=== PATIENT | male | born 1990 | race Caucasian/White ===

== ENCOUNTER 2018-01-04 09:29 | Day surgery (SDC) | payer BC ==
[~2018-01-04 09:29] MED LIST: ANCEF VIAL 1 GM ONE; MARCAINE 0.25% INJ ONE; NS 100 ML IV 100 ML IV ONE; NS 1000 ML 1,000 ML ONE; XYLOCAINE 1% and EPINEPHRINE 1:100,000 ONE
[2018-01-04 10:29] LABS: BASOPHILS # (AUTO) 0.1 X10^3/uL (0.0-0.1); BASOPHILS % (AUTO) 0.9 % (0.2-1.0); EOSINOPHILS # (AUTO) 0.2 x10^3/uL (0.0-0.2); EOSINOPHILS % (AUTO) 2.2 % (0.9-2.9); HEMATOCRIT 44.7 % (42.0-54.0); HEMOGLOBIN 15.4 g/dL (13.5-18.0); LYMPHOCYTES # (AUTO) 3.6 X10^3/uL (1.3-2.9); LYMPHOCYTES % (AUTO) 32.7 % (21.0-51.0); MEAN CORPUSCULAR HEMOGLOBIN 28.9 pg (27.0-34.0); MEAN CORPUSCULAR HGB CONC 34.4 g/dL (33.0-35.0); MEAN CORPUSCULAR VOLUME 83.9 fL (80.0-100.0); MEAN PLATELET VOLUME 9.9 fL (7.4-11.0); MONOCYTES # (AUTO) 0.6 x10^3/uL (0.3-0.8); MONOCYTES % (AUTO) 5.6 % (0.0-13.0); NEUTROPHILS # (AUTO) 6.5 x10^3/uL (2.2-4.8); NEUTROPHILS % (AUTO) 58.6 % (42.0-75.0); PLATELET COUNT 269 X10^3/uL (150.0-450.0); RED BLOOD COUNT 5.32 X10^6/uL (4.7-6.0); RED CELL DISTRIBUTION WIDTH 13.5 % (11.6-16.5); WHITE BLOOD COUNT 11.1 X10^3/uL (3.6-10.0)
[2018-01-04 10:37] LABS: ALANINE AMINOTRANSFERASE 36 Units/L (12-78); ALBUMIN 4.4 g/dL (3.4-5.0); ALKALINE PHOSPHATASE 113 Units/L (46-116); ASPARTATE AMINO TRANSFERASE 19 Units/L (15-37); BLOOD UREA NITROGEN 8 mg/dL (7-18); CALCIUM 8.7 mg/dL (8.5-10.1); CARBON DIOXIDE 28.7 mmol/L (21-32); CHLORIDE 103 mmol/L (98-107); CREATININE 1.04 mg/dL (0.70-1.30); SODIUM 140 mmol/L (136-145); eGFR BLACK RACES > 60 (>60); eGFR NON BLACK RACES > 60 (>60)
[2018-01-04] MEDS ORDERED: FENTANYL INJ 250 mcg ONE (11:07)
[2018-01-04] MEDS ORDERED: DILAUDID INJ ONE ×2 (11:55→13:14)
[2018-01-04] MEDS ORDERED: NS IRRIGATION 1000 ML 1,000 ML IR ONE ×2 (12:01→12:20)
[2018-01-04] MEDS ORDERED: PERCOCET TAB 5/325 MG PO PRN (12:54)
--- NOTE | 2018-01-04 12:56 | OR.GENERIC ---
Post-Op Note Generic - Post-Op Note Operative Report: Operative Report Date of Operation: January 04, 2018 Pre-Operative Diagnosis: Symptomatic cholelithiasis. Post-Operative Diagnosis: Symptomatic cholelithiasis Procedure: Laparoscopic cholecystectomy. Surgeon: Marcus Ramirez MD. Correction Officer: Barbara Rae CRNA. Specimen: Gallbladder. Estimated blood loss: Minimal. Complications: None. Summary: The patient is a 27 year old male who presented with symptomatic cholelithiasis. The patient was offered cholecystectomy. The risk and benefits of the procedure including difficulty with anesthesia, bleeding, infection, conversion to open procedure, bile leak, hernia formation, DVT, as well as PE were discussed with the patient. The patient understood these risks and requested the procedure. On January 04, 2018, the patient was brought to the operative theatre. A time out was performed verifying the patient and procedure. The patient received Ancef for pre-operative antibiosis. After satisfactory induction of general endotracheal anesthesia, the abdomen was prepped with Chloraprep and draped in the usual sterile fashion. The skin and subcutaneous tissue inferior to the umbilicus was anesthetized using local anesthetic. The skin was incised sharply. A 12 mm trocar was placed though the incision and into the peritoneal cavity using the Optiview technique. Carbon dioxide was infiltrated through this trocar to obtain a pneumoperitoneum of 15 mm Hg. A camera was placed through this trocar and swept in all directions. No injury was seen from entering the peritoneal cavity. A site was selected in the subxiphoid location for our 2nd trocar. The skin and fascia was anesthetized using local anesthetic. The skin was incised sharply. A 5 mm trocar was placed into the peritoneal cavity under direct visualization. In a similar manner, two additional 5 mm trocars were placed. The first was placed in the mid- clavicular line approximately 2 fingerbreadths inferior to the left costal margin and a second in the anterior axillary line approximately 2 fingerbreadths inferior to the left costal margin. The patient was placed in reverse Trendelenburg and rotated to the patients left. The gallbladder was grasped at the fundus and elevated cephalad and slightly lateral. The peritoneum on the medial and lateral aspects of the infundibulum of the gallbladder was scored using hook electrocautery. Using blunt dissection, the cystic artery and duct were isolated. The critical view of safety was obtained. Both of these structures were divided between endoclips. The gallbladder was dissected free using hook electrocautery. The gallbladder was placed in an endobag and removed through the umbilical trocar site without difficulty. The trocar and camera were placed back inside the abdomen. Our clips were noted in good position. A small branch of the cystic artery was seen with active bleeding. This was controlled with an endoclip. No further bleeding was seen. Bleeding of the gallbladder fossa was controlled using electrocautery. At this point, the 5 mm trocars were removed under direct visualization. No bleeding was seen. The umbilical trocar was then removed and pneumoperitoneum released. The fascia at the umbilicus was closed using a 0 -Vicryl placed in a [id number] configuration. The skin edges at all incisions were re-approximated using inverted, interrupted 4-0 Monocryl sutures. Mastisol and Steri-strips were placed. Sterile dressings were placed. The patient was awakened and taken to the recovery room in stable condition. There were no complications. All counts were correct.
[2018-01-04] MEDS ORDERED: BENADRYL INJ 50 MG VIAL IVP PRN (13:08)
[2018-01-04] MEDS ORDERED: PHENERGAN INJ 25 MG IVP PRN (13:08)
[2018-01-04] MEDS ORDERED: REGLAN INJ 10 MG VIAL IVP PRN (13:08)
[2018-01-04] MEDS ORDERED: ZOFRAN INJ 4 MG VIAL IVP PRN (13:08)
[2018-01-04] MEDS ORDERED: PHENERGAN INJ 25 MG ONE (13:15)
[2018-01-04] MEDS: DILAUDID INJ IVP PRN ×4 (13:15→13:33)
[2018-01-04 14:50] VITALS: BP 114/66
[2018-01-04] MEDS ORDERED: XYLOCAINE 2 % (PLAIN) ONE (15:01)
[2018-01-04] MEDS ORDERED: ZOFRAN INJ 4 MG VIAL ONE (15:01)
[2018-01-04] MEDS ORDERED: NORCURON INJ 10 MG VIAL ONE (15:01)
[2018-01-04] MEDS ORDERED: TORADOL 30 MG VIAL ONE (15:01)
[2018-01-04] MEDS ORDERED: QUELICIN (OR ANECTINE) ONE (15:01)
[2018-01-04] MEDS ORDERED: LTA KIT LIDOCAINE 4% ONE (15:01)
[2018-01-04] MEDS ORDERED: SUPRANE IN ONE (15:01)
[2018-01-04] MEDS ORDERED: ROBINUL ONE (15:01)
[2018-01-04] MEDS ORDERED: NEOSTIGMINE INJ ONE (15:01)
[2018-01-04] MEDS ORDERED: DIPRIVAN VIAL ONE (15:01)
[2018-01-04] MEDS ORDERED: VERSED ONE (15:01)
== END 2018-01-04 14:48 | disposition home or self-care (01) ==
LOC: SURG1 09:29
PROVIDERS: ATTEND Student in an Organized Health Care Education/Training Program
PROC: 0FT44ZZ Resection of Gallbladder, Percutaneous Endoscopic Approach (ICD-10-PCS; principal; 2018-01-04 13:00)
DX: K80.18 Calculus of gallbladder with other cholecystitis without obstruction (principal)
CPT/HCPCS: 36415; 80053; 85025; A4216; A4222; S0020; J0330; J0690; J1170; J1885; J2001; J2250; J2405; J2550; J2710; J3010; J3490